=== PATIENT | male | born 1945 | race Caucasian/White ===

== ENCOUNTER → 2017-12-13 | Outpatient (CLI) | payer OTHER ==
[2016-06-16 03:08] VITALS: BP 138/85
[~2017-12-13] MED LIST: NS 100 ML IV 100 ML IV ONE
--- NOTE | 2017-12-13 10:58 | CT ---
HISTORY: Left lower quadrant pain Study: CT abdomen pelvis with contrast Comparison: None Technique: Axial post-contrast images with coronal and sagittal reformats. Dose reduction procedures were used with mA/kv adjusted for body size. Findings: The lung bases are clear. Coronary artery calcifications are present. The liver, spleen, adrenal glan ds, and pancreas are within normal limits. No opaque stones are visible within the gallbladder. The k idneys are unobstructed and without masses. There is a 2 mm nonobstructing right midpole renal calcul us. No ureteral calculi are identified. No intraperitoneal or retroperitoneal lymphadenopathy of sign ificance is identified. The appendix is not identified with absolute certainty. There are no secondar y signs of appendicitis present. There are no finds congestive of diverticulitis or colitis. Examinat ion of the pelvis demonstrated no evidence for pelvic masses, pelvic fluid, or pelvic lymphadenopathy . No bladder abnormality is identified. The prostate gland is enlarged measuring 5.3 x 5.1 by 5.6 cm. No inguinal hernia or inguinal adenopathy is identified. No lytic or blastic skeletal lesions are id entified. IMPRESSION: No acute intra-abdominal or intrapelvic abnormality 2 mm nonobstructing right renal calculus Enlarged prostate gland Reported By:
== END ==
LOC: RAD 09:35
PROVIDERS: ATTEND Internal Medicine
DX: R10.32 Left lower quadrant pain (principal); R10.84 Generalized abdominal pain; N20.0 Calculus of kidney
CPT/HCPCS: 74177; A4222

== ENCOUNTER 2020-08-31 14:37 | Observation (INO) ==
[2020-08-31 14:47] VITALS: BMI 28.5
--- NOTE | 2020-08-31 14:57 | DR.GENAD ---
HPI Time Seen Time Seen by Provider: 08/31/20 14:49 PCP Primary Care Physician: JULIETTE Complaint/Symptoms Chief Complaint Doctors Comments: pt has felt qwel for 12 days after COVID 29 diagnosis but starting ths AM he felt tired and had low grade fever Chief Complaint:: PT. STATES HE BEGAN HAVING SYMTPOMS ON 08/21/20 AND TESTED POSITIVE FOR COVID 19. PT. STATES HE HAS HAD 2 ROUNDS OF ANTIBIOTICS. PT. STATES THIS MORNING WHEN HE WOKE UP, HE FELT REALLY DRAINED AND TIRED. PT. ALSO C/O LOW GRADE TEMP. PT. STATES HE HAS LOST WEIGHT SINCE BEING SICK. COVID-19 Coronavirus risk:travel/contact w/high risk person: Yes Has patient experienced Coronavirus symptoms: Yes Coronavirus symptoms experienced: Fever Source History Provided: Patient Mode of Arrival Mode of Arrival: Ambulatory Timing Onset of Chief Complaint: 08/21/20 PMH PMH Past Medical History: Yes Past Medical History Comment: ENLARGED PROSTATE Past Surgical History: Yes Surgical History: Tonsillectomy Family History History of Family Medical Conditions: No Social History Does patient currently use any type of tobacco product: No Have you used tobacco products in the last 12 months: No Type of Tobacco Use: None Does any household member use tobacco: No Alcohol Use: None Do you use any recreational Drugs:: No Lives With: Alone Lives Where: Home Travel Risk Coronavirus risk:travel/contact w/high risk person: Yes Has patient experienced Coronavirus symptoms: Yes Coronavirus symptoms experienced: Fever Infectious screening In the last 2 months have you had wt loss of >10#?: NO Have you had fever, night sweats or hemotysis?: No Have you traveled outside the country in the last 6 months?: No Isolation: Droplet ROS Review of Systems Constitutional: Fever, Malaise, Weakness and Fatigue Eyes: No Symptoms Reported ENTM: No Symptoms Reported Respiratoy: No Symptoms Reported Cardiovascular: No Symptoms Reported Gastrointestinal/Abdominal: No Symptoms Reported Genitourinary: No Symptoms Reported Neurological: No Symptoms Reported Musculoskeletal: Muscle Pain All Other Systems: Reviewed and Negative PE Vital Signs Vitals: Temperature 99.5 F Pulse Rate 77 Respiratory Rate 22 Blood Pressure 128/69 O2 Sat by Pulse Oximetry 95 General Limitations: No Limitations; negative Language Barrier General Appearance: Alert and In No Apparent Distress Head Head Exam: Normal Inspection, Atraumatic and Normocephalic Eyes Eye exam: Normal Appearance, PERRL and EOMI ENT ENT Exam: Normal Exam, Normal Oropharynx, Normal External Ear Exam and Mucous Membranes Moist External Ear Exam: Normal External Inspection Mouth Exam: Normal Inspection; negative Drooling, Lip Swelling and Tongue E levation Throat Exam: Normal Inspection; negative Tonsillar Erythema, Tonsillomegaly, Tonsillar Exudate, R Peritonsillar Mass and L Peritonsillar Mass Neck Neck Exam: Normal Inspection, Full ROM and Trachea Midline Chest Chest Inspection: Normal Inspection and Symmetric Chest Wall Rise; negative Tenderness Respiratory Respiratory Exam: Normal Lung Sounds Bilat; negative Accessory Muscle Use and Chest Wall Tenderness Respiratory Exam: Bilateral: Clear to Auscultation Cardiovascular Cardiovascular Exam: Regular Rate, Normal Rhythm and Normal Heart Sounds Abdominal Exam Abdominal Exam: Normal Inspection and Soft; negative Distention, Tenderness and Guarding Extremities Extremities Exam: Normal Inspection; negative Tenderness, Edema and Joint Swelling Back Back Exam: Normal Inspection and Full ROM; negative Tenderness Neurologic Neurological Exam: Alert, Oriented X3 and Normal Gait Psychiatric Psychiatric Exam: Normal Affect and Normal Mood MDM Differential Diagnosis Differential Diagnosis: pneumonia viral or bacteria CHF NE Arryhtmia pneumothorax ROR Labs Reviewed Result Diagrams: 08/31/20 15:00 08/31/20 15:00 Laboratory: WBC 19.5 X10^3/uL (3.6-10.0) H 08/31/20 15:00 RBC 5.25 X10^6/uL (4.7-6.0) 08/31/20 15:00 Hgb 15.3 g/dL (13.5-18.0) 08/31/20 15:00 Hct 45.6 % (42.0-54.0) 08/31/20 15:00 MCV 86.9 fL (80.0-100.0) 08/31/20 15:00 MCH 29.1 pg (27.0-34.0) 08/31/20 15:00 MCHC 33.5 g/dL (33.0-35.0) 08/31/20 15:00 RDW 13.5 % (11.6-16.5) 08/31/20 15:00 Plt Count 172 X10^3/uL (150.0-450.0) 08/31/20 15:00 MPV 7.6 fL (7.4-11.0) 08/31/20 15:00 Neut % (Auto) 60.8 % (42.0-75.0) 08/31/20 15:00 Lymph % (Auto) 31.3 % (21.0-51.0) 08/31/20 15:00 Anderson % (Auto) 7.7 % (0.0-13.0) 08/31/20 15:00 Eos % (Auto) 0.0 % (0.9-2.9) L 08/31/20 15:00 Baso % (Auto) 0.2 % (0.2-1.0) 08/31/20 15:00 Neut # (Auto) 11.9 x10^3/uL (2.2-4.8) H 08/31/20 15:00 Lymph # (Auto) 6.1 X10^3/uL (1.3-2.9) H 08/31/20 15:00 Anderson # (Auto) 1.5 x10^3/uL (0.3-0.8) H 08/31/20 15:00 Eos # (Auto) 0.0 x10^3/uL (0.0-0.2) 08/31/20 15:00 Baso # (Auto) 0.0 X10^3/uL (0.0-0.1) 08/31/20 15:00 Absolute Nucleated RBC 0.2 /100WBC 08/31/20 15:00 Sample Site Rr 08/31/20 15:37 ABG pH 7.470 (7.35-7.45) H 08/31/20 15:37 ABG pCO2 34.0 mmHg (35.0-45.0) L 08/31/20 15:37 ABG pO2 76.0 mmHg (80.0-100.0) L 08/31/20 15:37 ABG HCO3 24.7 mmol/L (22-26) 08/31/20 15:37 ABG O2 Saturation 96.0 % (90-100) 08/31/20 15:37 ABG Base Excess 1.4 mmol/L (-2.0-2.0) 08/31/20 15:37 Orville Test Pos 08/31/20 15:37 A-a Gradient 31.0 mmHg 08/31/20 15:37 FiO2 21.0 08/31/20 15:37 Blood Gas Comments Pt [email or web address] 08/31/20 15:37 Sodium 133 mmol/L (136-145) L 08/31/20 15:00 Corrected Sodium 133 mmol/L (136-145) L 08/31/20 15:00 Potassium 4.1 mmol/L (3.5-5.1) 08/31/20 15:00 Chloride 97 mmol/L (98-107) L 08/31/20 15:00 Carbon Dioxide 24.2 mmol/L (21-32) 08/31/20 15:00 BUN 24 mg/dL (7-18) H 08/31/20 15:00 Creatinine 1.15 mg/dL (0.70-1.30) 08/31/20 15:00 Est GFR (MDRD) Af Amer > 60 (>60) 08/31/20 15:00 Est GFR (MDRD) Non-Af > 60 (>60) 08/31/20 15:00 Glucose 116 mg/dL (65-99) H 08/31/20 15:00 Calcium 8.4 mg/dL (8.5-10.1) L 08/31/20 15:00 Corrected Calcium TNP 08/31/20 15:00 Magnesium 1.8 mg/dL (1.7-2.9) 08/31/20 15:00 Ferritin 611 ng/mL (26-388) H 08/31/20 15:00 Total Bilirubin 0.70 mg/dL (0.2-1.0) 08/31/20 15:00 AST 18 Units/L (15-37) 08/31/20 15:00 ALT 40 Units/L (12-78) 08/31/20 15:00 Alkaline Phosphatase 63 Units/L (46-116) 08/31/20 15:00 Creatine Kinase 50 Units/L (39-308) 08/31/20 15:00 CK-MB (CK-2) < 1.0 ng/mL (0-4.0) 08/31/20 15:00 CK/CKMB % Calc 2.0 % (<4) 08/31/20 15:00 Troponin I < 0.02 ng/mL (0-1.5) 08/31/20 15:00 C-Reactive Protein 9.10 mg/L (0-3.0) H 08/31/20 15:00 Total Protein 6.8 g/dL (6.4-8.2) 08/31/20 15: Albumin 3.5 g/dL (3.4-5.0) 08/31/20 15: Globulin 3.3 g/dL (2.5-4.5) 08/31/20 15: Albumin/Globulin Ratio 1.1 Ratio (1.1-2.1) 08/31/20 15:00 Specimen Type Clean catch urine 08/31/20:18 Urine Color Straw (YELLOW) 08/31/20 Urine Appearance Clear (CLEAR) 08/31/20 Urine pH 6.0 (5.0 - 8.0) 08/31/2018 Ur Specific [place] 1.010 (1.000-1.030) 08/31/20:18 Urine Protein Negative (NEGATIVE) 08/31/2018 Urine Glucose (UA) Negative (NEGATIVE) 08/31/20 Urine Ketones Negative (NEGATIVE) 08/31/20:18 Urine Occult Blood 2+ (NEGATIVE) 08/31/20 Urine Nitrite Negative (NEGATIVE) 08/31/20 Urine Bilirubin Negative (NEGATIVE) 08/31/20:18 Urine Urobilinogen Normal (NORMAL) 08/31/20:18 Ur Leukocyte Esterase Negative (NEGATIVE) 08/31/20:18 Urine RBC 0-2 /HPF (0-3) 08/31/20:18 Urine WBC None seen /HPF (0-5) 08/31/20:18 Ur Squamous Epith Cells Negative /HPF (NEGATIVE) 08/31/20:18 Urine Bacteria Negative /HPF (NEGATIVE) 08/31/2018 Ur Culture Indicated? No/not indicated 08/31/20 Influenza Type A (PCR) Negative (NEGATIVE) 08/31/20 15: Influenza Type B (PCR) Negative (NEGATIVE) 08/31/20 15: S. pyogenes (TEM-PCR) Not detected (NOT DETECT) 08/31/20 15: XRAY XRAY Interpreted by: Radiologist X-ray Results: + fpr Pneumonia Opioid Opioid Risk Tool Age (Shreyas box if 16-45): No History of Preadolescent Sexual Abuse: No Total: 0 Total Score Risk Category: Low Risk Copyright: [employer] [place] predicting aberrant behaviors Diagnosis Discharge Problem: Hypoxia, COVID-19 Pneumonia Qualifiers: Pneumonia type: due to unspecified organism
--- NOTE | 2020-08-31 15:10 | RAD ---
HISTORYSOB, FEVER, COVIDSTUDYCHEST, 1 VIEWCOMPARISONNone availableFINDINGSThe trachea is midline. There is mild elevation of the left diaphragm. Normal heart siz.e there is uncoiling of the aortic arch. There are patchy ground-glass radiopacities in the left base. No pneumothorax or pleural effusions.IMPRESSIONMild elevation of the left diaphragm. Patchy ground-glass radiopacities in the left base as well as in the right midlung zone.Electronically signed by: Radha Quintero (Aug 31, 2020 15:08:44)
[2020-08-31 15:16] LABS: BASOPHILS % (AUTO) 0.2 % (0.2-1.0); HEMATOCRIT 45.6 % (42.0-54.0); HEMOGLOBIN 15.3 g/dL (13.5-18.0); LYMPHOCYTES # (AUTO) 6.1 X10^3/uL (1.3-2.9); LYMPHOCYTES % (AUTO) 31.3 % (21.0-51.0); MEAN CORPUSCULAR HEMOGLOBIN 29.1 pg (27.0-34.0); MEAN CORPUSCULAR HGB CONC 33.5 g/dL (33.0-35.0); MEAN CORPUSCULAR VOLUME 86.9 fL (80.0-100.0); MEAN PLATELET VOLUME 7.6 fL (7.4-11.0); MONOCYTES # (AUTO) 1.5 x10^3/uL (0.3-0.8); MONOCYTES % (AUTO) 7.7 % (0.0-13.0); NEUTROPHILS # (AUTO) 11.9 x10^3/uL (2.2-4.8); NEUTROPHILS % (AUTO) 60.8 % (42.0-75.0); PLATELET COUNT 172 X10^3/uL (150.0-450.0); RED BLOOD COUNT 5.25 X10^6/uL (4.7-6.0); RED CELL DISTRIBUTION WIDTH 13.5 % (11.6-16.5); WHITE BLOOD COUNT 19.5 X10^3/uL (3.6-10.0)
[2020-08-31 15:28] LABS: BILIRUBIN,URINE NEGATIVE (NEGATIVE); BLOOD/HEMOGLOBIN,URINE 2+ (NEGATIVE); GLUCOSE, URINE NEGATIVE (NEGATIVE); KETONES,URINE NEGATIVE (NEGATIVE); LEUKOCYTE ESTERASE ,URINE NEGATIVE (NEGATIVE); NITRITES,URINE NEGATIVE (NEGATIVE); PROTEIN,URINE NEGATIVE (NEGATIVE); UROBILINOGEN,URINE NORMAL (NORMAL)
[2020-08-31] MEDS ORDERED: ROCEPHIN 1 GRAM IV PREMIX 1 G/50 ML IV.SOLN. IV ONE ×2 (15:28→16:27)
[2020-08-31] MEDS ORDERED: ZITHROMAX INJ 500 MG VIAL 500 MG in NS 250 ML IV 250 ML IV SCH (15:29)
[2020-08-31] MEDS ORDERED: DECADRON INJ PRESERVATIVE-FREE IVP ONE (15:30)
[2020-08-31 15:44] LABS: ABG BASE EXCESS 1.4 mmol/L (-2.0-2.0); ABG HCO3 24.7 mmol/L (22-26)
[2020-08-31 15:45] LABS: ABG ALLEN TEST POS
[2020-08-31 15:50] LABS: BLOOD UREA NITROGEN 24 mg/dL (7-18); CALCIUM 8.4 mg/dL (8.5-10.1); CARBON DIOXIDE 24.2 mmol/L (21-32); CHLORIDE 97 mmol/L (98-107); COR NA(FOR HYPERGLY) 133 mmol/L (136-145); CREATININE 1.15 mg/dL (0.70-1.30); SODIUM 133 mmol/L (136-145); TROPONIN I < 0.02 ng/mL (0-1.5); eGFR NON BLACK RACES > 60 (>60)
[2020-08-31 15:51] LABS: APPEARANCE,URINE CLEAR (CLEAR); COLOR,URINE STRAW (YELLOW); RBC,URINE 0-2 /HPF (0-3)
[2020-08-31 15:52] LABS: BACTERIA,URINE NEGATIVE /HPF (NEGATIVE); SQUAMOUS EPITHELIAL CELL,UR NEGATIVE /HPF (NEGATIVE)
[2020-08-31 15:54] LABS: ALANINE AMINOTRANSFERASE 40 Units/L (12-78); ALBUMIN 3.5 g/dL (3.4-5.0); ALKALINE PHOSPHATASE 63 Units/L (46-116); ASPARTATE AMINO TRANSFERASE 18 Units/L (15-37); CREATINE KINASE 50 Units/L (39-308); CREATINE KINASE MB < 1.0 ng/mL (0-4.0); MAGNESIUM 1.8 mg/dL (1.7-2.9); TOTAL PROTEIN 6.8 g/dL (6.4-8.2)
[2020-08-31 16:04] LABS: STREP A BY PCR NOT DETECTED (NOT DETECT)
[2020-08-31] MEDS ORDERED: DECADRON INJ ONE (16:26)
[2020-08-31] MEDS ORDERED: NS 1000 ML 1,000 ML ONE (16:26)
[2020-08-31] MEDS ORDERED: NS 250 ML IV 250 ML IV ONE (17:12)
[2020-08-31] MEDS ORDERED: ZITHROMAX INJ 500 MG VIAL IV ONE (17:12)
[2020-08-31] MEDS: NS 1000 ML 1,000 ML IV SCH (18:35)
[2020-08-31] MEDS ORDERED: ROCEPHIN 1 GRAM IV PREMIX 1 G/50 ML IV.SOLN. IV SCH (20:12)
[2020-08-31] MEDS ORDERED: MOTRIN TAB 800 MG PO PRN (20:12)
[2020-08-31] MEDS: DUONEB 0.5 MG/3 MG (3 mL) NEB SCH (21:05)
[2020-08-31] MEDS: PULMICORT NEB TX 0.5 MG NEB SCH (21:05)
[2020-08-31] MEDS: ROCEPHIN 1 GRAM IV PREMIX 1 G/50 ML IV.SOLN. IV SCH (21:42)
[2020-08-31] MEDS ORDERED: REMDESIVIR 200 MG in NS 250 ML IV 250 ML IV SCH (22:00)
[2020-08-31] MEDS: SOLU-Medrol 40 MG VIAL IVP SCH (22:50)
[2020-09-01] MEDS: NS 1000 ML 1,000 ML IV SCH ×3 (04:30→20:50)
[2020-09-01 05:17] LABS: ABG ALLEN TEST POS; ABG BASE EXCESS -0.7 mmol/L (-2.0-2.0); ABG HCO3 23.2 mmol/L (22-26)
[2020-09-01] MEDS: SOLU-Medrol 40 MG VIAL IVP SCH ×3 (05:45→22:00)
[2020-09-01] MEDS: DUONEB 0.5 MG/3 MG (3 mL) NEB SCH ×2 (06:11→14:10)
--- NOTE | 2020-09-01 06:49 | RAD ---
HISTORYCOVID, SOBSTUDYCHEST, 1 [id number]/15/2020.TECHNIQUEAP view of the chestFINDINGSCardiac and mediastinal contours appear stable. Stable appearance of mild scattered bilateral interstitial opacities. Elevated left hemidiaphragm. No definite pleural effusion or pneumothorax.IMPRESSIONNo significant change.Electronically signed by: Guzman Swan (Sep 01, 2020 06:48:07)
[2020-09-01 07:26] LABS: BASOPHILS % (AUTO) 0 % (0.2-1.0); LYMPHOCYTES # (AUTO) 5.9 X10^3/uL (1.3-2.9); LYMPHOCYTES % (AUTO) 46.3 % (21.0-51.0); MEAN CORPUSCULAR HEMOGLOBIN 28.9 pg (27.0-34.0); MEAN CORPUSCULAR HGB CONC 33.2 g/dL (33.0-35.0); MEAN CORPUSCULAR VOLUME 86.9 fL (80.0-100.0); MEAN PLATELET VOLUME 7.9 fL (7.4-11.0); MONOCYTES # (AUTO) 0.2 x10^3/uL (0.3-0.8); MONOCYTES % (AUTO) 1.4 % (0.0-13.0); NEUTROPHILS # (AUTO) 6.7 x10^3/uL (2.2-4.8); NEUTROPHILS % (AUTO) 52.3 % (42.0-75.0); PLATELET COUNT 156 X10^3/uL (150.0-450.0); RED BLOOD COUNT 5.18 X10^6/uL (4.7-6.0); RED CELL DISTRIBUTION WIDTH 13.2 % (11.6-16.5); WHITE BLOOD COUNT 12.7 X10^3/uL (3.6-10.0)
[2020-09-01] MEDS ORDERED: ZITHROMAX TAB 250 MG PO ONE (07:40)
[2020-09-01] MEDS ORDERED: PEPCID 20 MG IV PREMIX* 20 MG/50 ML BAG IV ONE (07:40)
[2020-09-01] MEDS ORDERED: NS 1000 ML 1,000 ML ONE (07:40)
[2020-09-01] MEDS ORDERED: PROTONIX INJ 40 MG VIAL ONE (07:41)
[2020-09-01 07:42] LABS: ALANINE AMINOTRANSFERASE 35 Units/L (12-78); ALBUMIN 3.3 g/dL (3.4-5.0); ALKALINE PHOSPHATASE 55 Units/L (46-116); ASPARTATE AMINO TRANSFERASE 15 Units/L (15-37); BLOOD UREA NITROGEN 21 mg/dL (7-18); CALCIUM 8.6 mg/dL (8.5-10.1); CARBON DIOXIDE 22.1 mmol/L (21-32); CHLORIDE 102 mmol/L (98-107); COR CA(FOR HYPOALB) 9.2 mg/dL (8.5-10.1); COR NA(FOR HYPERGLY) 141 mmol/L (136-145); CREATININE 1.23 mg/dL (0.70-1.30); SODIUM 139 mmol/L (136-145); TOTAL PROTEIN 6.6 g/dL (6.4-8.2); eGFR NON BLACK RACES > 60 (>60)
[2020-09-01] MEDS ORDERED: DECADRON INJ PRESERVATIVE-FREE IVP SCH (09:00)
[2020-09-01] MEDS: PULMICORT NEB TX 0.5 MG NEB SCH ×2 (09:45→20:55)
[2020-09-01] MEDS: PEPCID 20 MG IV PREMIX* 20 MG/50 ML BAG IV SCH ×2 (10:15→20:51)
[2020-09-01] MEDS: ZITHROMAX TAB 250 MG PO SCH (10:15)
[2020-09-01] MEDS: PROTONIX INJ 40 MG VIAL IVP SCH ×2 (10:15→20:51)
[2020-09-01] MEDS: LOVENOX INJ 30 MG SYR SC SCH ×2 (15:51→20:50)
--- NOTE | 2020-09-01 20:35 | DR.H&P ---
H&P - History & Physical for Day of: H&P Date: 08/31/20 - Chief Complaint Chief Complaint: COUGH, SOB, FEVER, FATIGUE, BODY ACHES, WEAKNESS - History of Present Illness History of Present Illness: IS A 75 YEAR OLD WHITE MALE WHO PRESENTED TO THE ER WITH COMPLAINTS OF COUGH, SHORTNESS OF BREATH, FEVER, FATIGUE, BODY ACHES, AND WEAKNESS. HIS SYMPTOMS STARTED ON 08/21/20. HE TESTED POSITIVE FOR COVID-19 OVER A WEEK AGO. HE WAS STARTED ON A ZPAK AND ALBUTEROL INHALER ON 08/21/20. HE BEGAN TAKING PLAQUENIL 200MG PO BID AND A MEDROL DOSEPACK ON 08/23/20. HE REPORTS PROGRESSIVE WORSENING OF SYMPTOMS DESPITE COMPLIANCE WITH MEDICATIONS. AUSCULTATION OF LUNG MAYERS REVEALED SCATTERED WHEEZING. HIS PMH INCLUDES BPH AND A TONSILLECTOMY. ON ARRIVAL TO THE ER, HER VITALS WERE 99.5-100-22-97%-146/75. LABS WERE OBTAINED. ABNORMAL LAB VALUES INCLUDE THE FOLLOWING: WBC 19.5, SODIUM 133, CHLORIDE 97, BUN 24, GLUCOSE 116, CALCIUM 8.4, FERRITIN 611, CRP 9.10. CARDIAC ENZYMES WITHIN NORMAL LIMITS. COVID-19 POSITIVE. INFLUENZA NEGATIVE. ABG REVEALED: PH 7.470, PC02 34.0, P02 76, HC03 24.7, 02 SAT 96, FI02 21.0. BLOOD CULTURES WERE SET UP. A CHEST XRAY WAS OBTAINED AND REVEALED: Mild elevation of the left diaphragm. Patchy ground-glass rad iopacities in the left base as well as in the right midlung zone. AN EKG WAS OBTAINED AND REVEALED: SINUS RHYTHM WITH HR 82. WHILE IN THE ER, HIS OXYGEN SATURATIONS FELL TO 92%. HE WAS PLACED ON NASAL CANNULA AT 2L/MIN. HE WAS GIVEN DECADRON 8MG IV X 1, ZITHROMAX 500MG IV X 1, ROCEPHIN 1G IV X 1, AND REMDESIVIR 200MG IV X 1 IN THE ER. HE WAS ADMITTED TO THE HOSPITAL FOR FURTHER EVALUATION AND TREATMENT OF PNEUMONIA DUE TO COVID-19 AND HYPOXIA. HE WAS STARTED ON NS AT 125 ML/HR, REMDESIVIR 100MG IV DAILY, PROTONIX 40MG IV BID, PEPCID 20MG IV Q12H, SOLU-MEDROL 80MG IV Q8H, LOVENOX 30MG SC BID, ROCEPHIN 1G IV Q12H, ZITHROMAX 500MG PO DAILY, PULMICORT NEB TX, XOPENEX NEB TX. OTHERWISE, WE PLAN TO FOLLOW UP WITH AM LABS, CHEST XRAY, ABG, AND CONTINUE TO MONITOR. TIME SPENT ON CLINICAL ASSESSMENT, REVIEWING LABS AND IMAGING, DECISION MAKING, AND DOCUMENTATION GREATER THAN 75 MINUTES. - Past Medical History Additional Medical History: BPH - Past Surgical History Surgical History: Tonsillectomy - Social History Does patient currently use any type of tobacco product: No Have you used tobacco products in the last 12 months: No Type of Tobacco Use: None Does any household member use tobacco: No Alcohol Use: None Drug Use: None - Medications Home Medications: No Known Drug Allergies Allergy (Verified 08/31/20 14:47) CONTINUE taking the following medications diphenoxylate-atropine 1 tab PO TID PRN 09/01/20 [History] hydroxychloroquine 200 mg PO BID 09/01/20 [History] methylprednisolone 4 mg PO .DOSE PACK 09/01/20 [History] - Review of Systems Constitutional: See HPI, Fever, Chills, Weakness Eyes: No Symptoms Reported ENT: No Symptoms Reported Respiratory: See HPI, Cough, Shortness of Breath, SOB with Excertion, Wheezing Cardiovascular: No Symptoms Reported Gastrointestinal: No Symptoms Reported Genitourinary: No Symptoms Reported Musculoskeletal: No Symptoms Reported Skin: No Symptoms Reported Neurological: Weakness - Physical Exam Vital Signs: Temperature 98.7 F Pulse Rate [Apical] 110 Pulse Rate 92 Respiratory Rate 18 Blood Pressure [Left Arm] 132/69 Blood Pressure 128/69 O2 Sat by Pulse Oximetry 97 Oriented: Normal Eyes: Normal Ear: Normal Nose: Normal Throat: Normal Respiratory: Wheezes Throughout Cardiovascular: Normal : Normal Auscultation: Bowel Sounds: Normal Palpation: Normal Tenderness: Normal Skin: Normal Musculoskeletal: Normal Psychiatric: Normal Mood Description: Calm Affect: Normal Speech Pattern: Clear - Assessment/Plan (1) Pneumonia due to 2019 novel coronavirus Status: Acute Plan: NS AT 125 ML/HR, REMDESIVIR 100MG IV DAILY, PROTONIX 40MG IV BID, PEPCID 20MG IV Q12H, SOLU-MEDROL 80MG IV Q8H, LOVENOX 30MG SC BID, ROCEPHIN 1G IV Q12H, ZITHROMAX 500MG PO DAILY, PULMICORT NEB TX, XOPENEX NEB TX. (2) Hypoxia Status: Acute - Allergies Allergies/Adverse Reactions: Allergies Allergy/AdvReac Type Severity Reaction Status Date / Time No Known Drug Allergies Allergy Verified 08/31/20 14:47
[2020-09-01] MEDS: ROCEPHIN 1 GRAM IV PREMIX 1 G/50 ML IV.SOLN. IV SCH (20:52)
[2020-09-01] MEDS: XOPENEX 1.25 MG/3 ML NEBULE NEB SCH (20:55)
[2020-09-01] MEDS ORDERED: REMDESIVIR 100 MG in NS 250 ML IV 250 ML IV SCH (22:00)
[2020-09-02 04:42] LABS: ABG ALLEN TEST POS; ABG BASE EXCESS -2.9 mmol/L (-2.0-2.0); ABG HCO3 20.8 mmol/L (22-26); FRACTIONATED INSPIRED OXYGEN 21
[2020-09-02] MEDS: NS 1000 ML 1,000 ML IV SCH ×3 (04:54→12:37)
[2020-09-02] MEDS: XOPENEX 1.25 MG/3 ML NEBULE NEB SCH (05:15)
[2020-09-02] MEDS: SOLU-Medrol 40 MG VIAL IVP SCH (06:10)
[2020-09-02 06:45] LABS: BASOPHILS % (AUTO) 0 % (0.2-1.0); HEMATOCRIT 38.9 % (42.0-54.0); HEMOGLOBIN 12.9 g/dL (13.5-18.0); LYMPHOCYTES % (AUTO) 23.9 % (21.0-51.0); MEAN CORPUSCULAR HEMOGLOBIN 28.8 pg (27.0-34.0); MEAN CORPUSCULAR HGB CONC 33.1 g/dL (33.0-35.0); MEAN PLATELET VOLUME 7.9 fL (7.4-11.0); MONOCYTES # (AUTO) 0.6 x10^3/uL (0.3-0.8); MONOCYTES % (AUTO) 2.9 % (0.0-13.0); NEUTROPHILS # (AUTO) 15.3 x10^3/uL (2.2-4.8); NEUTROPHILS % (AUTO) 73.2 % (42.0-75.0); PLATELET COUNT 168 X10^3/uL (150.0-450.0); RED BLOOD COUNT 4.47 X10^6/uL (4.7-6.0); WHITE BLOOD COUNT 20.9 X10^3/uL (3.6-10.0)
[2020-09-02 07:05] LABS: ALANINE AMINOTRANSFERASE 26 Units/L (12-78); ALBUMIN 2.6 g/dL (3.4-5.0); ALKALINE PHOSPHATASE 46 Units/L (46-116); ASPARTATE AMINO TRANSFERASE 13 Units/L (15-37); BLOOD UREA NITROGEN 23 mg/dL (7-18); CARBON DIOXIDE 19.6 mmol/L (21-32); CHLORIDE 106 mmol/L (98-107); COR CA(FOR HYPOALB) 9.1 mg/dL (8.5-10.1); COR NA(FOR HYPERGLY) 141 mmol/L (136-145); CREATININE 1.08 mg/dL (0.70-1.30); SODIUM 140 mmol/L (136-145); TOTAL PROTEIN 5.2 g/dL (6.4-8.2); eGFR NON BLACK RACES > 60 (>60)
[2020-09-02 07:32] LABS: PLATELET MORPHOLOGY COMMENT NORMAL (NORMAL)
--- NOTE | 2020-09-02 08:10 | RAD ---
HISTORYCOVID, SOBSTUDYCHEST, 1 [id number]/16/2020FINDINGSThe trachea is midline. The cardiac silhouette is stable. Similar bilateral airspace opacities. The bony thorax is unremarkable.IMPRESSIONNo significant change.Electronically signed by: YOSHI BOYER (Sep 02, 2020 08:08:08)
[2020-09-02] MEDS ORDERED: K-RIDER 10 MEQ/NS 100 ML 10 MEQ/100 ML BAG IV PRN (08:19)
[2020-09-02] MEDS ORDERED: POTASSIUM CHL 40 MEQ/NS 0.45% 500 ML IV PRN (08:19)
[2020-09-02] MEDS ORDERED: K-DUR TAB 20 MEQ PO PRN (08:19)
[2020-09-02] MEDS ORDERED: KLOR-CON PO PRN (08:19)
[2020-09-02] MEDS ORDERED: POTASSIUM CHLORIDE LIQ 20 MEQ UDC PO PRN (08:19)
[2020-09-02] MEDS ORDERED: MICRO K EXTEN CAP 10 MEQ PO PRN (08:19)
[2020-09-02] MEDS ORDERED: POTASSIUM CHL 60 MEQ/NS 0.45% 500 ML IV PRN (08:19)
[2020-09-02] MEDS: PEPCID 20 MG IV PREMIX* 20 MG/50 ML BAG IV SCH (08:39)
[2020-09-02] MEDS: LOVENOX INJ 30 MG SYR SC SCH (09:05)
[2020-09-02] MEDS: PROTONIX INJ 40 MG VIAL IVP SCH (09:08)
[2020-09-02] MEDS: ZITHROMAX TAB 250 MG PO SCH (09:30)
[2020-09-02] MEDS ORDERED: NS 500 ML IV 500 ML IV ONE (09:33)
[2020-09-02] MEDS ORDERED: LOMOTIL PO ONE (09:33)
[2020-09-02] MEDS: PULMICORT NEB TX 0.5 MG NEB SCH (09:35)
[2020-09-02 10:55] VITALS: BP 109/62
[2020-09-02] MEDS ORDERED: REMDESIVIR 100 MG in NS 250 ML IV 250 ML IV ONE (12:00)
== END 2020-09-02 12:45 | disposition home or self-care (01) ==
LOC: ER 14:43 → MED/SURG 16:27 → INTOOBSV 16:27 → MED/SURG 19:45
PROVIDERS: ADMIT Internal Medicine; ATTEND Internal Medicine
DX: R09.02 Hypoxemia; J12.89 Other viral pneumonia; U07.1 COVID-19; R06.02 Shortness of breath